=== PATIENT | female | born 2000 | race Caucasian/White ===

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

== ENCOUNTER 2024-01-31 14:47 | Emergency (ER) | payer BC ==
[2024-01-31 15:18] VITALS: BP 116/73; PULSE 63; RESP 20; TEMP 98.2
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
[2024-01-31] MEDS: ACETAMINOPHEN TAB 500 MG TAB PO STA (15:43)
--- NOTE | 2024-01-31 15:59 | XR ---
EXAMINATION TYPE: XR ankle complete RT DATE OF EXAM: 01/31/2024 3:50 PM CLINICAL INDICATION:Female, 23 years old with history of injury, pain; [facility] COMPARISON: None TECHNIQUE: XR ankle complete RT; ankle is imaged in frontal, lateral and oblique projections. FINDINGS: There is no evidence of acute osseous pathology. The joint spaces are well-preserved without evidenc e of subluxation or dislocation. Kager's fat pad is intact. Soft tissues are within normal limits. No radiopaque foreign bodies are identified. IMPRESSION: 1. No evidence of acute fracture.
== END 2024-01-31 16:44 | disposition home or self-care (01) ==
LOC: EC 14:47
DX: S93.401A Sprain of unspecified ligament of right ankle, initial encounter (principal); F17.290 Nicotine dependence, other tobacco product, uncomplicated; Z88.8 Allergy status to other drugs, medicaments and biological substances; W50.0XXA Accidental hit or strike by another person, initial encounter
CPT/HCPCS: 29515; 99283

== ENCOUNTER 2024-09-15 20:37 | Inpatient (IN) | payer BC ==
[2024-09-15 20:45] VITALS: RESP 16
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
[2024-09-15] MEDS: ACETAMINOPHEN TAB 325 MG TAB PO STA (22:21)
[2024-09-15] MEDS: ONDANSETRON ODT 4 MG TAB PO STA (22:26)
[2024-09-16] MEDS: diphenhydrAMINE 50 MG CAP PO STA (00:25)
[2024-09-16] MEDS ORDERED: HALOPERIDOL LACTATE 5 MG/ML 1 ML VIAL IM PRN (01:22)
[2024-09-16] MEDS ORDERED: MAG HYDROX/AL HYDROX/SIMETH 355 ML BOTTLE PO PRN (01:22)
[2024-09-16] MEDS ORDERED: haloperidoL 5 MG TAB PO PRN (01:22)
[2024-09-16] MEDS ORDERED: LORazepam 2 MG/ML INJ IM PRN (01:22)
[2024-09-16] MEDS ORDERED: MAGNESIUM HYDROXIDE 2,400 MG/30 ML CUP PO PRN (01:22)
[2024-09-16] MEDS: LORazepam 1 MG TAB PO PRN (02:26)
[2024-09-16 06:47] LABS: Basophils % (A) 1 %; Eosinophils # (A) 0.1 k/uL (0-0.7); Eosinophils % (A) 1 %; HCT 36.9 % (34.0-46.0); HGB 12.5 gm/dL (11.4-16.0); Lymphocytes % (A) 28 %; MCH 30.9 pg (25.0-35.0); MCHC 33.9 g/dL (31.0-37.0); MCV 91.4 fL (80.0-100.0); Mean Platelet Volume 8.1; Monocytes # (A) 0.5 k/uL (0-1.0); Monocytes % (A) 7 %; Neutrophils # (A) 4.4 k/uL (1.3-7.7); Neutrophils % (A) 61 %; Platelet Count 189 k/uL (150-450); RBC 4.04 m/uL (3.80-5.40); RDW 12.2 % (11.5-15.5); WBC 7.3 k/uL (3.8-10.6)
[2024-09-16 07:00] LABS: ALT 18 U/L (4-34); AST 20 U/L (14-36); African American GFR (CKD) >90 (>60 ml/min/1.73 sqM); Albumin 4.2 g/dL (3.5-5.0); Alkaline Phosphatase 39 U/L (38-126); Anion Gap 9 mmol/L; Blood Urea Nitrogen 14 mg/dL (7-17); Calcium 9.4 mg/dL (8.4-10.2); Carbon Dioxide 20 mmol/L (22-30); Chloride 108 mmol/L (98-107); Glucose 76 mg/dL (74-99); Non-African American GFR(CKD) >90 (>60 ml/min/1.73 sqM); Potassium 3.8 mmol/L (3.5-5.1); Sodium 137 mmol/L (137-145); Total Bilirubin 0.8 mg/dL (0.2-1.3); Total Protein 6.1 g/dL (6.3-8.2)
[2024-09-16] MEDS: NICOTINE 14MG/24HR PATCH TRANSDERM SCH (08:22)
[2024-09-16] MEDS: SERTRALINE 50 MG TAB PO SCH (13:22)
[2024-09-16 16:11] LABS: Chol/HDL Ratio 3.16 Ratio; LDL Cholesterol,Calculated 82.9 mg/dL (0.0-131.0); VLDL Calculation 10.74 mg/dL (5.00-40.00)
[2024-09-16] MEDS: ONDANSETRON ODT 4 MG TAB PO PRN (17:24)
[2024-09-16 18:05] LABS: Appearance,Urine Clear (Clear); Bilirubin,Urine Negative (Negative); Blood,Urine Negative (Negative); Color,Urine Colorless; Glucose,Urine (UA) Negative (Negative); Ketones,Urine 1+ (Negative); Leukocyte Esterase,Urine Negative (Negative); Nitrite,Urine Negative (Negative); Protein,Urine Negative (Negative); Specific Gravity,Urine 1.015 (1.001-1.035); Urobilinogen,Urine <2.0 mg/dL (<2.0)
[2024-09-16 18:21] LABS: Amphetamine Screen,Urine Not Detected (NotDetected); Barbiturate Screen,Urine Not Detected (NotDetected); Benzodiazepines Screen,Urine Detected (NotDetected); Cocaine Screen,Urine Not Detected (NotDetected); Methadone Screen, Urine Not Detected (NotDetected); Opiate Screen,Urine Not Detected (NotDetected); Oxycodone Screen, Urine Not Detected (NotDetected); Phencyclidine Screen,Urine Not Detected (NotDetected); Tricyclic Antidepressant,Urine Not Detected (NotDetected); Urn Cannabinoid Scrn Detected (NotDetected)
--- NOTE | 2024-09-16 22:04 | CONS ---
CONSULTATION REASON FOR CONSULTATION: Advice regarding vaping and other medical issues, requested by Psychiatry. HISTORY OF PRESENT ILLNESS: This is a 23-year-old woman with a past medical history of vaping, was admitted to psychiatric evaluation. The patient had rib pain on admission, but currently the patient is asymptomatic and rib x-rays showed no acute abnormality. There is no history of any fever, rigors, or chills. PAST MEDICAL HISTORY: History of ADD, ADHD, bipolar, vaping, THC. Rest of the history and rest of the chart is also reviewed. HOME MEDICATIONS: Bentyl p.r.n. ALLERGIES: Tylenol. FAMILY HISTORY: No history of heart disease or strokes in the family. SOCIAL HISTORY: As mentioned earlier. REVIEW OF SYSTEMS: A 14-point review of systems is negative except as mentioned earlier. PHYSICAL EXAMINATION: VITAL SIGNS: Pulse is 89, blood pressure 104/66, respirations 16. CHEST: Clear to auscultation. CARDIOVASCULAR: S1. S2. ABDOMEN: Soft. NERVOUS SYSTEM: Nonfocal. SKIN: No ulcer, rash, bleeding. JOINTS: No active deforming arthropathy. LABORATORY DATA: Reviewed. ASSESSMENT: 1. Depression. 2. Right rib pain improved. 3. History of vaping. 4. History of attention deficit disorder, attention-deficit/hyperactivity disorder, bipolar. RECOMMENDATIONS AND DISCUSSION: This is a 23-year-old woman, who presented to psych floor, is medically stable at this time. I recommend to continue current medications, continue symptomatic treatment. The patient may be asked to follow up with Dr. Patel, who is a primary physician closely. Otherwise, if there is any new complaints, please let us know and we will be happy to review. MMODL / IJN: [id number] /
[2024-09-17] MEDS: IBUPROFEN 600 MG TAB PO PRN (10:22)
[2024-09-17] MEDS ORDERED: LORazepam 0.5 MG TAB PO PRN (13:46)
[2024-09-17] MEDS ORDERED: LORazepam 2 MG/ML INJ IM PRN (13:46)
[2024-09-17] MEDS: traZODone HCL 50 MG TAB PO PRN (20:27)
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
--- NOTE | 2024-09-17 20:57 | P.PN ---
Progress Note - Text Progress Note Date: 09/17/24 Progress Note Interval history: I evaluated patient on 09/17/24 via HIPAA compliant telehealth Patient presents with pleasant mood, reports she is doing better these past couple days than the past month. She is compliant with Zoloft and denies medication side effects today, but did have some mild nausea yesterday and took a Zofran. She denies SI/HI, intent or plan. She AVH, paranoia. She attended groups today. Yesterday she was given Ativan 2 mg po x 3 for anxiety, and 2 mg po x 2 for anxiety so far today. She states the Ativan is what is keeping her calm currently, and we discussed we will be lowering the dose. MENTAL STATUS EXAM: General Appearance: Patient appears stated age. She is alert, cooperative today. Wearing street clothing Behavior: pleasant, calm, cooperative Speech: Patient's speech is fluent and non-pressured. Mood/Affect: Claims her mood is "better", affect is congruent, not labile Suicidality/Homicidality: Denies Perceptions: Denies any auditory or visual hallucinations, Though content/process: Linear, goal-directed Memory and concentration: AOX3 Judgment and insight: Slightly improving. IMPRESSIONS: Major depressive disorder, recurrent, moderate Unspecified anxiety disorder, r/o Generalized anxiety disorder Trauma or stressor related disorder Rule out Borderline traits PLAN: -Patient is admitted under voluntary status to MHU for stabilization of psychiatric symptoms and safety. Patient has signed adult voluntary form and medication consent and is placed in patient's chart. -Medications: Continue Zoloft 50 mg daily for depression and anxiety. Decrease Ativan 2 mg po/IM Q6H PRN to 0.5-1 mg po/IM Q6H PRN for anxiety. -Ativan and Haldol PRN for agitation/aggression -NRT -nicotine patch -SW on board for discharge planning. Encourage patient to participate in groups to work on coping skills. -She would benefit from long-term DBT therapy following discharge.
--- NOTE | 2024-09-18 10:03 | P.PN ---
Subjective Progress Note Date: 09/18/24 Principal diagnosis: major depression recurrent nonpsychotic ADHD I evaluated patient on 09/17/24 via HIPAA compliant telehealth Patient presents with pleasant mood, reports she is doing better these past couple days than the past month. She is compliant with Zoloft and denies medication side effects today, but did have some mild nausea yesterday and took a Zofran. She denies SI/HI, intent or plan. She AVH, paranoia. She attended groups today. Yesterday she was given Ativan 2 mg po x 3 for anxiety, and 2 mg po x 2 for anxiety so far today. She states the Ativan is what is keeping her calm currently, and we discussed we will be lowering the dose. MENTAL STATUS EXAM: General Appearance: Patient appears stated age. She is alert, cooperative today. Wearing street clothing excellent self care Behavior: pleasant, calm, cooperative Speech: Patient's speech is fluent and non-pressured. Mood/Affect: Claims her mood is "better", affect is congruent, not labile Suicidality/Homicidality: Denies Perceptions: Denies any auditory or visual hallucinations, Though content/process: Linear, goal-directed Memory and concentration: AOX3 Judgment and insight: Slightly improving. IMPRESSIONS: Major depressive disorder, recurrent, moderate ADHD Unspecified anxiety disorder, r/o Generalized anxiety disorder Trauma or stressor related disorder Rule out Borderline traits PLAN: -Patient is admitted under voluntary status to MHU for stabilization of psychiatric symptoms and safety. Patient has signed adult voluntary form and medication consent and is placed in patient's chart. -Medications: Continue Zoloft 50 mg daily for depression and anxiety.the patient reports that the Zoloft already seems to be helping her not be anxious or overreacting emotionally. She says she knows it normally takes longer but she feels likes already starting to work Decrease Ativan 2 mg po/IM Q6H PRN to 0.5-1 mg po/IM Q6H PRN for anxiety.we will find out whether that, this is from the Ativan or if in fact his Zoloft is working a little faster than expected. She does say she took Zoloft in the past and didn't feel that it worked so think it's a good idea but I do think maybe he needs to be increased also talked to her about adding some Wellbutrin as a smooths help for the ADHD. She took Vyvanse and Adderall in the past but had to use real high doses to get consistent benefit and felt that she was in danger of abusing it. -Ativan and Haldol PRN for agitation/aggression -NRT -nicotine patch -SW on board for discharge planning. Encourage patient to participate in groups to work on coping skills. -She would benefit from long-term DBT therapy following discharge. Objective - Vital Signs Vital signs: Vital Signs Temp 97.3 F L 09/17/24 06:53 Pulse 119 H 09/17/24 13:48 Resp 16 09/17/24 06:53 BP 121/56 09/17/24 13:48 Pulse Ox 99 09/17/24 13:48 FiO2 - Labs CBC & Chem 7: 09/16/24 06:35 09/16/24 06:35
--- NOTE | 2024-09-19 09:53 | P.PN ---
Subjective Progress Note Date: 09/19/24 Principal diagnosis: major depression recurrent nonpsychotic ADHD the patient was in the lounge socializing with other patients and she got up and came readily. She is compliant with Zoloft and feels that it is helping on her being not anxious. She has considered what I talked about yesterday in regards to the Wellbutrin and would like something that helps with focus that is not addictive similar to the stimulant she would like to try the Wellbutrin. She denies SI/HI, intent or plan. Shedenies AVH, orparanoia. She attended groups today. MENTAL STATUS EXAM: good eye contact quick response times gait and station are normal General Appearance: Patient appears stated age. She is alert, cooperative today. Wearing street clothing excellent self care Behavior: pleasant, calm, cooperative Speech: Patient's speech is fluent and non-pressured. Mood/Affect: Claims her mood is "better", affect is congruent, not labile Suicidality/Homicidality: Denies Perceptions: Denies any auditory or visual hallucinations, Though content/process: Linear, goal-directed Memory and concentration: AOX3 Judgment and insight: good IMPRESSIONS: Major depressive disorder, recurrent, moderate ADHD Unspecified anxiety disorder, r/o Generalized anxiety disorder Trauma or stressor related disorder Rule out Borderline traits PLAN: I think we should add in the Wellbutrin is complementary to Zoloft and will help with a lot of her ADHD symptoms without becoming addictive. -Patient is admitted under voluntary status to MHU for stabilization of psychiatric symptoms and safety. Patient has signed adult voluntary form and medication consent and is placed in patient's chart. -Medications: Continue Zoloft 50 mg daily for depression and anxiety.the patient reports that the Zoloft already seems to be helping her not be anxious or overreacting emotionally. She says she knows it normally takes longer but she feels likes already starting to work Decrease Ativan 2 mg po/IM Q6H PRN to 0.5-1 mg po/IM Q6H PRN for anxiety.we will find out whether that, this is from the Ativan or if in fact his Zoloft is working a little faster than expected. She does say she took Zoloft in the past and didn't feel that it worked so think it's a good idea but I do think maybe he needs to be increased also talked to her about adding some Wellbutrin as a smooths help for the ADHD. She took Vyvanse and Adderall in the past but had to use real high doses to get consistent benefit and felt that she was in danger of abusing it. -Ativan and Haldol PRN for agitation/aggression -NRT -nicotine patch -SW on board for discharge planning. Encourage patient to participate in groups to work on coping skills. -She would benefit from long-term DBT therapy following discharge. Objective - Vital Signs Vital signs: Vital Signs Temp 98.9 F 09/19/24 06:49 Pulse 55 L 09/19/24 06:49 Resp 16 09/19/24 06:49 BP 109/67 09/19/24 06:49 Pulse Ox 98 09/19/24 06:49 FiO2 - Labs CBC & Chem 7: 09/16/24 06:35 09/16/24 06:35
[2024-09-19] MEDS: buPROPion XL 150 MG TAB.ER.24H PO SCH (10:03)
[2024-09-20 08:05] VITALS: BP 98/64; PULSE 94; TEMP 97
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
== END 2024-09-20 12:53 | disposition home or self-care (01) | DRG 885 ==
LOC: EC 20:37 → 3MHU 09-16 01:17
PROVIDERS: ADMIT Psychiatry & Neurology Psychiatry; ATTEND Psychiatry & Neurology Psychiatry
DX: F31.30 Bipolar disorder, current episode depressed, mild or moderate severity, unspecified (principal); R45.851 Suicidal ideations; F43.10 Post-traumatic stress disorder, unspecified; F17.290 Nicotine dependence, other tobacco product, uncomplicated; F41.0 Panic disorder [episodic paroxysmal anxiety]; F90.9 Attention-deficit hyperactivity disorder, unspecified type; G47.00 Insomnia, unspecified; Z65.3 Problems related to other legal circumstances; Z91.52 Personal history of nonsuicidal self-harm; Z88.6 Allergy status to analgesic agent
CPT/HCPCS: 80053; 80061; 80306; 81003; 81025; 82075; 83036; 84443; 85025; 87502; 87634; 87635; 99285

== ENCOUNTER 2025-01-15 22:39 | Emergency (ER) | payer BC ==
[2025-01-15 22:42] VITALS: TEMP 97.2
[2025-01-15] MEDS: SODIUM CHLORIDE 0.9% 1,000 ML IV ONE (23:16)
[2025-01-15] MEDS: SODIUM CHLORIDE 0.9% 500 ML 500 ML IV ONE (23:16)
[2025-01-15] MEDS: ONDANSETRON 4 MG/2 ML VIAL IVP STA (23:16)
[2025-01-15] MEDS: PANTOPRAZOLE 40 MG/10 ML VIAL IVP STA (23:16)
[2025-01-15 23:19] LABS: Basophils # (A) 0.08 10*3/uL (0.00-0.10); Basophils % (A) 0.6 %; Eosinophils # (A) 0.01 10*3/uL (0.04-0.35); Eosinophils % (A) 0.1 %; HCT 39.2 % (37.2-46.3); HGB 13.5 g/dL (12.0-15.0); Lymphocytes # (A) 2.95 10*3/uL (0.90-5.00); MCH 30.3 pg (27.0-32.0); MCHC 34.4 g/dL (32.0-37.0); MCV 87.9 fL (80.0-97.0); Mean Platelet Volume 10.7 fL (9.5-12.2); Monocytes # (A) 0.73 10*3/uL (0.20-1.00); Monocytes % (A) 5.7 %; Neutrophils # (A) 9.04 10*3/uL (1.80-7.70); Neutrophils % (A) 70.4 %; Platelet Count 257 10*3/uL (140-440); RBC 4.46 10*6/uL (4.10-5.20); RDW 11.9 % (11.5-14.5); WBC 12.84 10*3/uL (4.50-10.00)
[2025-01-15 23:30] LABS: ALT 19 U/L (4-34); AST 23 U/L (14-36); African American GFR (CKD) >90 (>60 ml/min/1.73 sqM); Albumin 4.9 g/dL (3.5-5.0); Alkaline Phosphatase 53 U/L (38-126); Anion Gap 16 mmol/L; Blood Urea Nitrogen 13 mg/dL (7-17); Calcium 9.7 mg/dL (8.4-10.2); Carbon Dioxide 20 mmol/L (22-30); Chloride 108 mmol/L (98-107); Glucose 120 mg/dL (74-99); HCG,Qualitative Serum Not Detected; Magnesium 2.5 mg/dL (1.6-2.3); Non-African American GFR(CKD) >90 (>60 ml/min/1.73 sqM); Potassium 3.7 mmol/L (3.5-5.1); Sodium 144 mmol/L (137-145); Total Protein 7.5 g/dL (6.3-8.2)
[2025-01-15 23:40] LABS: Alcohol 203 mg/dL
[2025-01-16] MEDS: SODIUM CHLORIDE 0.9% 1,000 ML IV SCH (00:22)
--- NOTE | 2025-01-16 01:10 | ED ---
General Adult HPI - General Chief complaint: Alcohol Stated complaint: ETOH Time Seen by Provider: 01/15/25 23:00 Source: patient, RN notes reviewed, old records reviewed Mode of arrival: ambulatory Limitations: no limitations - History of Present Illness Initial comments: Patient is a 24-year-old female presents emergency department complaining of alcohol intoxication. Patient was apparently drinking at a alliance party and drank too much. States she was drinking pink lemonade. Began throwing up at home and she was more tired at home. Parents became concerned and brought her here for evaluation of a concern for alcohol toxicity. Patient denies any acute complaints. States she occasionally feels nauseous. Has no other acute complaints this time. No significant past medical history. Does endorse smoking marijuana. Presents for further evaluation. - Related Data Home Medications Medication Instructions Recorded Confirmed Dicyclomine [Bentyl] 20 mg PO TID PRN 09/16/24 09/16/24 Previous Rx's Medication Instructions Recorded Sertraline [Zoloft] 50 mg PO DAILY #30 tab 09/20/24 buPROPion XL [Wellbutrin XL] 150 mg PO DAILY #30 tab 09/20/24 traZODone HCL [Desyrel] 50 mg PO HS PRN #30 tab 09/20/24 Allergies Allergy/AdvReac Type Severity Reaction Status Date / Time acetaminophen [From Tylenol] Allergy Nausea & Verified 01/15/25 22:42 Vomiting Review of Systems ROS Statement: Those systems with pertinent positive or pertinent negative responses have been documented in the HPI. Review of Systems: CONST: Denies fever EYES: Denies blurry vision ENT: Denies nasal congestion C/V: Denies Chest pain RESP: Denies shortness of breath GI: Denies abdominal pain : Denies dysuria SKIN: Denies rash. MSK: Denies joint pain. NEURO: Denies headache ROS Other: All systems not noted in ROS Statement are negative. Past Medical History Past Medical History: No Reported History History of Any Multi-Drug Resistant Organisms: None Reported Past Surgical History: No Surgical Hx Reported Past Psychological History: ADD/ADHD, Bipolar, Depression Smoking Status: Vaper Past Alcohol Use History: None Reported Past Drug Use History: Marijuana General Exam - General Exam Comments Initial Comments: General: Appears intoxicated HEAD: Normal with no signs of head trauma. EYES: PERRLA, EOMI, conjunctiva normal, no discharge. Pupils are 2 mm and equal bilaterally. ENT: Hearing grossly intact, normal oropharynx. RESPIRATORY: Clear breath sounds bilaterally. No wheezes, rales, or rhonchi. C/V: Regular rate and rhythm. S1 and S2 auscultated, no edema, peripheral pulses 2+ and intact throughout ABD: Abd is soft, nontender, nondistended EXT: Normal range of motion, no obvious deformity SKIN: No rashes or lesions observed on exposed skin. NEURO: Alert and oriented x 4. No focal deficits. Limitations: no limitations Course Vital Signs 01/15/25 01/16/25 22:40 01:27 Temperature 97.2 F L Pulse Rate 81 80 Respiratory 18 16 Rate Blood Pressure 100/63 99/64 O2 Sat by Pulse 96 97 Oximetry Medical Decision Making - Medical Decision Making Was pt. sent in by a medical professional or institution (, PA, TOUR PRODUCTION SUPERVISOR, urgent care, hospital, or shelter...) When possible be specific @ -No Did you speak to anyone other than the patient for history (EMS, parent, family, police, friend...)? What history was obtained from this source @ -Parents brought the patient in and are the primary historians for the patient. Did you review nursing and triage notes (agree or disagree)? Why? @ -I reviewed and agree with nursing and triage notes Were old charts reviewed (outside hosp., previous admission, EMS record, old EKG, old radiological studies, urgent care reports/EKG's, shelter records)? Report findings @ -No old charts were reviewed Differential Diagnosis (chest pain, altered mental status, abdominal pain women, abdominal pain men, vaginal bleeding, weakness, fever, dyspnea, syncope, headache, dizziness, GI bleed, back pain, seizure, CVA, palpatations, mental health, musculoskeletal)? @ -Alcohol intoxication, electrolyte abnormality, drug use. This list is not all-inclusive. EKG interpreted by me (3pts min.). @ -None done X-rays interpreted by me (1pt min.). @ -None done CT interpreted by me (1pt min.). @ -None done U/S interpreted by me (1pt. min.). @ -None done What testing was considered but not performed or refused? (CT, X-rays, U/S, labs)? Why? @ -None What meds were considered but not given or refused? Why? @ -None Did you discuss the management of the patient with other professionals (professionals i.e. , PA, TOUR PRODUCTION SUPERVISOR, lab, RT, psych nurse, social media campaign manager, sales support assistant, teacher, chief clinical officer, renal case manager)? Give summary @ -No Was smoking cessation discussed for >3mins.? @ -No Was critical care preformed (if so, how long)? @ -No Were there social determinants of health that impacted care today? How? (Homelessness, low income, unemployed, alcoholism, drug addiction, transportation, low edu. Level, literacy, decrease access to med. care, nursing home, rehab)? @ -No Was there de-escalation of care discussed even if they declined (Discuss DNR or withdrawal of care, Hospice)? DNR status @ -No What co-morbidities impacted this encounter? (DM, HTN, Smoking, COPD, CAD, Cancer, CVA, ARF, Chemo, Hep., AIDS, mental health diagnosis, sleep apnea, morbid obesity)? @ -None Was patient admitted / discharged? Hospital course, mention meds given and route , prescriptions, significant lab abnormalities, going to OR and other pertinent info. @ -Patient presents for alcohol intoxication with nausea and vomiting. We will obtain basic labs, urinalysis, as well as an alcohol level. Patient will be administered 1500 cc fluid bolus and placed on maintenance fluids and given Zofran. Will attempt oral intake. Patient was in agreement this plan. Vitals are within acceptable limits. Laboratory studies remarkable for negative test. Alcohol level was 203. Remainder the labs unremarkable. Slight elevation of white blood cells of 12 which is likely reactive to the nausea and vomiting. UDS returned positive for marijuana. I discussed results with parents as well as patient. She is awake, alert, tolerating oral intake. She is more interactive and is feeling improved. Discussed results with them. Counseled her on safe alcohol practices. She was in agreement this plan. She be discharged home at this time. I instructed the patient to follow up with their PCP in the next 1-3 days. I explained that the patient should return to the emergency department if they experience any worsening symptoms. Strict return precautions were discussed with the patient. The patient expressed understanding of these instructions. I answered all questions that the patient had. The patient was discharged home in good condition with their prescriptions and follow up information. Undiagnosed new problem with uncertain prognosis? @ -No Drug Therapy requiring intensive monitoring for toxicity (Heparin, Nitro, Insulin, Cardizem)? @ -No Were any procedures done? @ -No Diagnosis/symptom? @ -Alcohol intoxication, nausea, vomiting Acute, or Chronic, or Acute on Chronic? @ -Acute Uncomplicated (without systemic symptoms) or Complicated (systemic symptoms)? @ -Uncomplicated Side effects of treatment? @ -None Exacerbation, Progression, or Severe Exacerbation] @ -No Poses a threat to life or bodily function? @ -Unlikely at this time - Lab Data Result diagrams: 01/15/25 23:10 01/15/25 23:10 Lab Results 01/15/25 01/15/25 01/16/25 Range/Units 23:10 23:10 00:59 WBC 12.84 H (4.50-10.00) 10*3/uL RBC 4.46 (4.10-5.20) 10*6/uL Hgb 13.5 (12.0-15.0) g/dL Hct 39.2 (37.2-46.3) % MCV 87.9 (80.0-97.0) fL MCH 30.3 (27.0-32.0) pg MCHC 34.4 (32.0-37.0) g/dL Plt Count 257 (140-440) 10*3/uL MPV 10.7 (9.5-12.2) fL Immature Gran % (Auto) 0.2 % Neutrophils % 70.4 % Lymphocytes % 23.0 % Monocytes % 5.7 % Eosinophils % 0.1 % Basophils % 0.6 % Immature Gran # 0.03 (0.00-0.04) 10*3/uL Neutrophils # 9.04 H (1.80-7.70) 10*3/uL Lymphocytes # 2.95 (0.90-5.00) 10*3/uL Monocytes # 0.73 (0.20-1.00) 10*3/uL Eosinophils # 0.01 L (0.04-0.35) 10*3/uL Basophils # 0.08 (0.00-0.10) 10*3/uL Sodium 144 (137-145) mmol/L Potassium 3.7 (3.5-5.1) mmol/L Chloride 108 H (98-107) mmol/L Carbon Dioxide 20 L (22-30) mmol/L Anion Gap 16 mmol/L BUN 13 (7-17) mg/dL Creatinine 0.76 (0.52-1.04) mg/dL Est GFR (CKD-EPI)AfAm >90 (>60 ml/min/1.73 sqM) Est GFR (CKD-EPI)NonAf >90 (>60 ml/min/1.73 sqM) Glucose 120 H (74-99) mg/dL Calcium 9.7 (8.4-10.2) mg/dL Magnesium 2.5 H (1.6-2.3) mg/dL Total Bilirubin 1.0 (0.2-1.3) mg/dL AST 23 (14-36) U/L ALT 19 (4-34) U/L Alkaline Phosphatase 53 (38-126) U/L Total Protein 7.5 (6.3-8.2) g/dL Albumin 4.9 (3.5-5.0) g/dL HCG, Qual Not Detected Urine Color Colorless Urine Appearance Clear (Clear) Urine pH 5.5 (5.0-8.0) Ur Specific [place] 1.010 (1.001-1.035) Urine Protein Negative (Negative) Urine Glucose (UA) Negative (Negative) Urine Ketones Negative (Negative) Urine Blood Moderate H (Negative) Urine Nitrite Negative (Negative) Urine Bilirubin Negative (Negative) Urine Urobilinogen <2.0 (<2.0) mg/dL Ur Leukocyte Esterase Negative (Negative) Urine RBC 1 (0-5) /hpf Urine WBC 1 (0-5) /hpf Ur Squamous Epith Cells 4 (0-4) /hpf Urine Bacteria Rare H (None) /hpf Hyaline Casts 1 (0-2) /lpf Urine Mucus Few H (None) /hpf Urine Opiates Screen (NotDetected) Ur Oxycodone Screen (NotDetected) Urine Methadone Screen (NotDetected) Ur Barbiturates Screen (NotDetected) U Tricyclic Antidepress (NotDetected) Ur Phencyclidine Scrn (NotDetected) Ur Amphetamines Screen (NotDetected) U Methamphetamines Scrn (NotDetected) U Benzodiazepines Scrn (NotDetected) Urine Cocaine Screen (NotDetected) U Marijuana (THC) Screen (NotDetected) Serum Alcohol 203 H* mg/dL 01/16/25 Range/Units 00:59 WBC (4.50-10.00) 10*3/uL RBC (4.10-5.20) 10*6/uL Hgb (12.0-15.0) g/dL Hct (37.2-46.3) % MCV (80.0-97.0) fL MCH (27.0-32.0) pg MCHC (32.0-37.0) g/dL Plt Count (140-440) 10*3/uL MPV (9.5-12.2) fL Immature Gran % (Auto) % Neutrophils % % Lymphocytes % % Monocytes % % Eosinophils % % Basophils % % Immature Gran # (0.00-0.04) 10*3/uL Neutrophils # (1.80-7.70) 10*3/uL Lymphocytes # (0.90-5.00) 10*3/uL Monocytes # (0.20-1.00) 10*3/uL Eosinophils # (0.04-0.35) 10*3/uL Basophils # (0.00-0.10) 10*3/uL Sodium (137-145) mmol/L Potassium (3.5-5.1) mmol/L Chloride (98-107) mmol/L Carbon Dioxide (22-30) mmol/L Anion Gap mmol/L BUN (7-17) mg/dL Creatinine (0.52-1.04) mg/dL Est GFR (CKD-EPI)AfAm (>60 ml/min/1.73 sqM) Est GFR (CKD-EPI)NonAf (>60 ml/min/1.73 sqM) Glucose (74-99) mg/dL Calcium (8.4-10.2) mg/dL Magnesium (1.6-2.3) mg/dL Total Bilirubin (0.2-1.3) mg/dL AST (14-36) U/L ALT (4-34) U/L Alkaline Phosphatase (38-126) U/L Total Protein (6.3-8.2) g/dL Albumin (3.5-5.0) g/dL HCG, Qual Urine Color Urine Appearance (Clear) Urine pH (5.0-8.0) Ur Specific [place] (1.001-1.035) Urine Protein (Negative) Urine Glucose (UA) (Negative) Urine Ketones (Negative) Urine Blood (Negative) Urine Nitrite (Negative) Urine Bilirubin (Negative) Urine Urobilinogen (<2.0) mg/dL Ur Leukocyte Esterase (Negative) Urine RBC (0-5) /hpf Urine WBC (0-5) /hpf Ur Squamous Epith Cells (0-4) /hpf Urine Bacteria (None) /hpf Hyaline Casts (0-2) /lpf Urine Mucus (None) /hpf Urine Opiates Screen Not Detected (NotDetected) Ur Oxycodone Screen Not Detected (NotDetected) Urine Methadone Screen Not Detected (NotDetected) Ur Barbiturates Screen Not Detected (NotDetected) U Tricyclic Antidepress Not Detected (NotDetected) Ur Phencyclidine Scrn Not Detected (NotDetected) Ur Amphetamines Screen Not Detected (NotDetected) U Methamphetamines Scrn Not Detected (NotDetected) U Benzodiazepines Scrn Not Detected (NotDetected) Urine Cocaine Screen Not Detected (NotDetected) U Marijuana (THC) Screen Detected H (NotDetected) Serum Alcohol mg/dL Disposition Clinical Impression: Alcoholic intoxication, Nausea and vomiting Disposition: HOME SELF-CARE Condition: Good Instructions (If sedation given, give patient instructions): Alcohol Intoxication (ED) Is patient prescribed a controlled substance at d/c from ED?: No Referrals: Eugene Patel MD [Primary Care Provider] - 1-2 days Time of Disposition: 02:37
[2025-01-16 01:28] VITALS: BP 99/64; PULSE 80; RESP 16
[2025-01-16 01:29] LABS: Appearance,Urine Clear (Clear); Bacteria,Urine Rare /hpf; Bilirubin,Urine Negative (Negative); Blood,Urine Moderate (Negative); Color,Urine Colorless; Glucose,Urine (UA) Negative (Negative); Hyaline Casts,Urine 1 /lpf (0-2); Ketones,Urine Negative (Negative); Leukocyte Esterase,Urine Negative (Negative); Mucus,Urine Few /hpf; Nitrite,Urine Negative (Negative); PH, Urine 5.5 (5.0-8.0); Protein,Urine Negative (Negative); RBC,Urine 1 /hpf (0-5); Squamous Epithelial Cell,Urine 4 /hpf (0-4); Urobilinogen,Urine <2.0 mg/dL (<2.0); WBC,Urine 1 /hpf (0-5)
[2025-01-16 02:30] LABS: Amphetamine Screen,Urine Not Detected (NotDetected); Benzodiazepines Screen,Urine Not Detected (NotDetected); Cocaine Screen,Urine Not Detected (NotDetected); Methadone Screen, Urine Not Detected (NotDetected); Opiate Screen,Urine Not Detected (NotDetected); Phencyclidine Screen,Urine Not Detected (NotDetected); Tricyclic Antidepressant,Urine Not Detected (NotDetected); Urn Cannabinoid Scrn Detected (NotDetected)
[2025-01-16 02:31] LABS: Barbiturate Screen,Urine Not Detected (NotDetected); Oxycodone Screen, Urine Not Detected (NotDetected)
== END 2025-01-16 02:41 | disposition home or self-care (01) ==
LOC: EC 22:39
DX: F10.129 Alcohol abuse with intoxication, unspecified (principal); F17.290 Nicotine dependence, other tobacco product, uncomplicated; Z88.6 Allergy status to analgesic agent; Y90.7 Blood alcohol level of 200-239 mg/100 ml
CPT/HCPCS: 99284; 96374; 96375; 96361; 36415; 80053; 83735; 85025; 81001; 84703; 80306; 80320; J2405; J2470

== ENCOUNTER 2025-03-25 10:07 | Emergency (ER) | payer BC ==
[2025-03-25 10:28] VITALS: TEMP 97.8
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
[2025-03-25 12:13] LABS: Bilirubin,Urine Negative (Negative); Blood,Urine Negative (Negative); Color,Urine Yellow; Glucose,Urine (UA) Negative (Negative); Ketones,Urine Negative (Negative); Leukocyte Esterase,Urine Moderate (Negative); Mucus,Urine Many /hpf; Nitrite,Urine Negative (Negative); PH, Urine 7.0 (5.0-8.0); Protein,Urine 1+ (Negative); RBC,Urine 2 /hpf (0-5); Specific Gravity,Urine 1.023 (1.001-1.035); Squamous Epithelial Cell,Urine 8 /hpf (0-4); Urobilinogen,Urine <2.0 mg/dL (<2.0); WBC,Urine 10 /hpf (0-5)
[2025-03-25 12:26] LABS: Barbiturate Screen,Urine Not Detected (NotDetected); Benzodiazepines Screen,Urine Not Detected (NotDetected); Opiate Screen,Urine Not Detected (NotDetected); Oxycodone Screen, Urine Not Detected (NotDetected); Phencyclidine Screen,Urine Not Detected (NotDetected); Tricyclic Antidepressant,Urine Not Detected (NotDetected); Urn Cannabinoid Scrn Detected (NotDetected)
[2025-03-25 12:33] VITALS: BP 95/56; PULSE 68; RESP 12
== END 2025-03-25 12:43 | disposition home or self-care (01) ==
LOC: EC 10:07
DX: F32.A Depression, unspecified (principal); F17.290 Nicotine dependence, other tobacco product, uncomplicated; Z88.6 Allergy status to analgesic agent
CPT/HCPCS: 80306; 81001; 81025; 82075; 99284